=== PATIENT | male | born 1980 | race African-American/Black ===

== ENCOUNTER 2018-01-09 10:32 | Emergency (ER) | payer SELFPAY ==
[2018-01-09 11:23] LABS: Absolute Monocytes 0.9 K/uL (0.1-1.3); Absolute Neutrophil 4.1 K/uL (1.8-8.0); BUN Blood Urea Nitrogen 10 mg/dL (7-18); Basophils % 0.4 % (0-1.3); Bicarbonate 24 mmol/L (21-32); Glucose Level 84 mg/dL (74-106); Hematocrit 46.4 % (39.6-49.0); Lymphocytes % 36.6 % (15.3-44.8); MCH 30.5 pg (27.0-35.0); MCV 93.5 fL (80-100); MPV 8.9 fL (7.6-11.3); Magnesium 2.3 mg/dL (1.8-2.4); Monocytes % 11.4 % (3.3-12.3); NT PRO-BNP 12 pg/mL (<125); Potassium 3.6 mmol/L (3.5-5.1); RBC Red Blood Cell Count 4.96 M/uL (4.33-5.43); Sodium Level 143 mmol/L (136-145); Troponin (Emerg Dept Use Only) < 0.02 ng/mL (0.0-0.045)
--- NOTE | 2018-01-09 11:26 | RAD REPORT ---
EXAM DESCRIPTION: RAD - Chest Single View - 01/09/2018 11:13 am CLINICAL HISTORY: Cough;Dyspnea;Chest pain Chest pain. COMPARISON: No comparisons FINDINGS: Portable technique limits examination quality. The lungs are grossly clear. The heart is normal in size. No displaced fractures. IMPRESSION: No acute intrathoracic process suspected.
[2018-01-09] MEDS ORDERED: LEVALBUTEROL 1.25 MG/3 ML NEB ONE (11:27)
[2018-01-09] MEDS ORDERED: NA CHLORIDE 0.9% 1,000 ML ONE (11:27)
[2018-01-09] MEDS ORDERED: IPRATROPIUM BROM 0.5MG/2.5ML ONE (11:27)
[2018-01-09] MEDS ORDERED: METHYLPREDNISOLONE 125 MG INJ ONE (11:27)
[2018-01-09] MEDS ORDERED: MAGNESIUM SULFATE 1 gm IVPB 1 GM/100 ML BAG IV ONE (11:27)
--- NOTE | 2018-01-09 14:32 | ER ---
Nurse's Notes [facility] Name: Yunior Valladares Age: 37 yrs Sex: Male : 1980 Arrival Date: 01/09/2018 Time: 10:33 Bed 3 Private MD: Diagnosis: Hyperventilation;Chest pain, unspecified Presentation: 01/09 10:35 Presenting complaint: Patient states: SOB STARTED AROUND 930 OR 1000. Transition of care: patient was not received from another setting of care. Onset of symptoms was January 09, 2018 at 09:30. Risk Assessment: Do you want to hurt yourself or someone else? Patient reports no desire to harm self or others. Initial Sepsis Screen: Does the patient meet any 2 criteria? No. Patient's initial sepsis screen is negative. Does the patient have a suspected source of infection? No. Patient's initial sepsis screen is negative. Care prior to arrival: None. 10:46 Method Of Arrival: Wheelchair 10:46 Acuity: JOSE M 2 ch Triage Assessment: 10:40 General: Appears in no apparent distress. uncomfortable, Behavior is anxious, crying, ch fussy, restless. Pain: Complains of pain in back and chest. 10:40 Neuro: No deficits noted. Level of Consciousness is awake, alert, obeys commands, ch Oriented to person, place, time, situation. Cardiovascular: Heart tones S1 S2 present Capillary refill < 3 seconds in bilateral fingers toes. Respiratory: Airway is patent Respiratory effort is even, unlabored, Respiratory pattern is hyperventilation. Respiratory: Reports shortness of breath at rest air hunger Onset: The symptoms/episode began/occurred this morning, the patient has mild shortness of breath. GI: No signs and/or symptoms were reported involving the gastrointestinal system. Derm: Skin is intact, is healthy with good turgor, Skin is diaphoretic, Skin is brown, pale. Musculoskeletal: No signs and/or symptoms reported regarding the musculoskeletal system. Circulation, motion, and sensation intact. Capillary refill < 3 seconds, in bilateral fingers. toes. Range of motion: intact in all extremities. Historical: - Allergies: 10:55 Iodine; ch 10:55 SHELLFISH; ch - Home Meds: 10:47 None [Active]; ch - PMHx: 10:47 None; ch - PSHx: 10:47 Knee surgery; ch - Immunization history:: Adult Immunizations up to date, Flu vaccine is not up to date. - Social history:: Smoking status: Patient/guardian denies using tobacco, Patient/guardian denies using alcohol, street drugs. - Family history:: not pertinent. - Ebola Screening: : Patient negative for fever greater than or equal to 101.5 degrees Fahrenheit, and additional compatible Ebola Virus Disease symptoms Patient denies exposure to infectious person Patient denies travel to an Ebola-affected area in the 21 days before illness onset No symptoms or risks identified at this time. - Hospitalizations: : No recent hospitalization is reported. Screenin:02 Abuse screen: Denies threats or abuse. Denies injuries from another. Nutritional ch screening: No deficits noted. Tuberculosis screening: No symptoms or risk factors identified. Fall Risk None identified. Assessment: 11:02 Reassessment: Patient appears in no apparent distress at this time. Patient and/or ch family updated on plan of care and expected duration. Pain level reassessed. Patient is alert, oriented x 3, equal unlabored respirations, skin warm/dry/pink. General: Appears in no apparent distress. comfortable, Behavior is calm, cooperative, appropriate for age. Cardiovascular: Heart tones S1 S2 present Rhythm is sinus rhythm. Respiratory: Airway is patent Respiratory effort is even, unlabored, Breath sounds are clear bilaterally. 11:41 Reassessment: Patient appears in no apparent distress at this time. Patient and/or ch family updated on plan of care and expected duration. Pain level reassessed. Patient is alert, oriented x 3, equal unlabored respirations, skin warm/dry/pink. PT STILL C/O CHEST PAIN Patient states feeling better. Patient states symptoms have improved. 12:52 Reassessment: Patient appears in no apparent distress at this time. Patient and/or ch family updated on plan of care and expected duration. Pain level reassessed. Patient is alert, oriented x 3, equal unlabored respirations, skin warm/dry/pink. PT STATES IT FEELS HARDER TO BREATH, LIKE HE IS SOB. NO CHANGES IN VITALS. 14:42 Reassessment: Patient appears in no apparent distress at this time. Patient and/or ch family updated on plan of care and expected duration. Pain level reassessed. Patient is alert, oriented x 3, equal unlabored respirations, skin warm/dry/pink. Patient states feeling better. Patient states symptoms have improved. Vital Signs: 10:30 BP 148 / 92; Pulse 101; Resp 38; Temp 98.4; Pulse Ox 100% on R/A; Weight 108.86 kg; ch Height 5 ft. 10 in. (177.80 cm); Pain 7/10; 11:01 BP 133 / 98; Pulse 85; Resp 17; Pulse Ox 99% on R/A; Pain 7/10; ch 11:41 BP 144 / 96; Pulse 92; Resp 20; Pulse Ox 99% on R/A; Pain 6/10; ch 12:52 BP 137 / 100; Pulse 88; Resp 17; Pulse Ox 97% on R/A; Pain 6/10; ch 14:42 BP 142 / 87; Pulse 78; Resp 18; Temp 98.3; Pulse Ox 99% on R/A; Pain 5/10; ch 10:30 Body Mass Index 34.44 (108.86 kg, 177.80 cm) ch ED Course: 10:33 Patient arrived in ED. ss 10:35 Allan Schneider MD is Attending Physician. rn 10:36 EKG done, by industrial hygiene technician. reviewed by Allan Schneider MD. sm3 10:40 Arm band placed on right wrist. Patient placed in an exam room, on a stretcher, on oxygen, on drier and evaporator operator, on pulse oximetry. 10:40 EKG completed in triage. Results shown to MD. ch 10:44 Missed attempt(s): 22 gauge in left antecubital area. jb1 10:44 Missed attempt(s): 22 gauge antecubital area. jb1 10:45 Sanam Kelly, RN is Primary Nurse. ch 10:47 Triage completed. ch 11:02 No apparent distress. Resting quietly. ch 11:02 No provider procedures requiring assistance completed. Inserted saline lock: 20 gauge ch in right forearm, using aseptic technique. Blood collected. STARTED BY REESE Bragg 11:02 Patient has correct armband on for positive identification. Placed in gown. Bed in low ch position. Call light in reach. Side rails up X2. dental laboratory technology teacher on. Pulse ox on. NIBP on. 11:10 X-ray completed. Portable x-ray completed in exam room. Patient tolerated procedure ag1 well. 11:11 XRAY Chest (1 view) In Process Unspecified. EDMS 14:42 IV discontinued, intact, bleeding controlled, No redness/swelling at site. Pressure ch dressing applied. Administered Medications: 10:30 Drug: Xopenex (3) 1.25 mg Route: Inhalation; ch 11:40 Follow up: Response: No adverse reaction ch 10:30 Drug: AtroVENT Aerosol 0.5 mg Route: Inhalation; ch 11:40 Follow up: Response: No adverse reaction ch 11:03 Drug: Magnesium Sulfate 1 grams Route: IVPB; Infused Over: 1 hrs; Site: right forearm; ch 12:54 Follow up: IV Status: Completed infusion; IV Intake: 100ml ch 11:30 Drug: NS 0.9% 1000 ml Route: IV; Rate: 1000 ml; Site: right forearm; ch 12:55 Follow up: IV Status: Completed infusion; IV Intake: 1000ml ch Intake: 12:54 IV: 100ml; Total: 100ml. ch 12:55 IV: 1000ml; Total: 1100ml. ch Outcome: 14:24 Discharge ordered by . rn 14:42 Discharged to home ambulatory, with family. 14:42 Condition: stable 14:42 Discharge instructions given to patient, family, Instructed on discharge instructions, medication usage, Demonstrated understanding of instructions, follow-up care, medications, Prescriptions given X 2. 14:46 Patient left the ED. eb Signatures: Dispatcher [employer] EDMS J Carlos Steven1 Sanam Kelly, RN Allan Gordon ch, MD MD rn Smirch, Shelby, RN RN ss Gallaway, Ashley ag1 Botello, Elizabeth eb Montes, Shakira 3
--- NOTE | 2018-01-09 14:32 | EDPHYS ---
Physician Documentation [facility] Name: Yunior Valladares Age: 37 yrs Sex: Male : 1980 Arrival Date: 01/09/2018 Time: 10:33 Bed 3 Private MD: ED Physician Allan Schneider HPI: 01/09 10:45 This 37 yrs old Black Male presents to ER via Unassigned with complaints of Shortness rn Of Breath. 10:45 The patient has shortness of breath at rest. Onset: The symptoms/episode began/occurred rn just prior to arrival. Duration: The symptoms are continuous. The patient's shortness of breath is aggravated by nothing, is alleviated by nothing. Severity of symptoms: At their worst the symptoms were moderate in the emergency department the symptoms are unchanged. The patient has not experienced similar symptoms in the past. REports sob, began this AM, reports cough for 1 week, feels tightness in chest, non-radiating, no fever, no hx of DVT/PE, no leg swelling, no recent surgery, + smoker, no trauma. Denies drug use.. Historical: - Allergies: 10:55 Iodine; ch 10:55 SHELLFISH; ch - Home Meds: 10:47 None [Active]; ch - PMHx: 10:47 None; ch - PSHx: 10:47 Knee surgery; ch - Immunization history:: Adult Immunizations up to date, Flu vaccine is not up to date. - Social history:: Smoking status: Patient/guardian denies using tobacco, Patient/guardian denies using alcohol, street drugs. - Family history:: not pertinent. - Ebola Screening: : Patient negative for fever greater than or equal to 101.5 degrees Fahrenheit, and additional compatible Ebola Virus Disease symptoms Patient denies exposure to infectious person Patient denies travel to an Ebola-affected area in the 21 days before illness onset No symptoms or risks identified at this time. - Hospitalizations: : No recent hospitalization is reported. ROS: 10:45 Constitutional: Negative for fever, chills, and weight loss, Eyes: Negative for injury, rn pain, redness, and discharge, Neck: Negative for injury, pain, and swelling, Cardiovascular: + chest pain Respiratory: + cough and sob Abdomen/GI: Negative for abdominal pain, nausea, vomiting, diarrhea, and constipation, MS/Extremity: Negative for injury and deformity, Skin: Negative for injury, rash, and discoloration, Neuro: Negative for headache, weakness, numbness, tingling, and seizure. Exam: 10:45 Constitutional: This is a well developed, well nourished patient who is awake, alert, rn hyperventilating, panicking Head/Face: Normocephalic, atraumatic. Eyes: Pupils equal round and reactive to light, extra-ocular motions intact. Lids and lashes normal. Conjunctiva and sclera are non-icteric and not injected. Cornea within normal limits. Periorbital areas with no swelling, redness, or edema. ENT: no stridor Cardiovascular: tachycardic, regular, no murmur Respiratory: + tachypnea, with faint wheezing LLB, no retractions Abdomen/GI: Soft, non-tender, with normal bowel sounds. No distension or tympany. No guarding or rebound. No evidence of tenderness throughout. Skin: Warm, dry with normal turgor. Normal color with no rashes, no lesions, and no evidence of cellulitis. MS/ Extremity: Pulses equal, no cyanosis. Neurovascular intact. Full, normal range of motion. Equal circumference. Neuro: Awake and alert, GCS 15, oriented to person, place, time, and situation. Cranial nerves II-XII grossly intact. Motor strength 5/5 in all extremities. Sensory grossly intact. Cerebellar exam normal. Normal gait. Vital Signs: 10:30 BP 148 / 92; Pulse 101; Resp 38; Temp 98.4; Pulse Ox 100% on R/A; Weight 108.86 kg; ch Height 5 ft. 10 in. (177.80 cm); Pain 7/10; 11:01 BP 133 / 98; Pulse 85; Resp 17; Pulse Ox 99% on R/A; Pain 7/10; ch 11:41 BP 144 / 96; Pulse 92; Resp 20; Pulse Ox 99% on R/A; Pain 6/10; ch 12:52 BP 137 / 100; Pulse 88; Resp 17; Pulse Ox 97% on R/A; Pain 6/10; ch 14:42 BP 142 / 87; Pulse 78; Resp 18; Temp 98.3; Pulse Ox 99% on R/A; Pain 5/10; ch 10:30 Body Mass Index 34.44 (108.86 kg, 177.80 cm) ch MDM: 10:35 Patient medically screened. rn 14:23 Differential diagnosis: Anemia Anxiety Reaction Bronchitis Myocardial Infarction rn pneumonia, Pneumothorax pulmonary edema, Pulmonary Embolism reactive airway disease. Data reviewed: vital signs, nurses notes, lab test result(s), EKG, radiologic studies, plain films, and as a result, I will discharge patient. Counseling: I had a detailed discussion with the patient and/or guardian regarding: the historical points, exam findings, and any diagnostic results supporting the discharge/admit diagnosis, lab results, radiology results, the need for outpatient follow up, to return to the emergency department if symptoms worsen or persist or if there are any questions or concerns that arise at home. Special discussion: Based on the patient's history, exam, and Dx evaluation, there is no indication for emergent intervention or inpatient Tx. It is understood by the patient/guardian that if the Sx's persist or worsen they need to return immediately for re-evaluation. I discussed with the patient/guardian in detail that at this point there is no indication for admission to the hospital. It is understood, however, that if the symptoms persist or worsen the patient needs to return immediately for re-evaluation. ED course: Much improved, now walking to bathroom without difficulty, oxygen 97%, d-dimer neg, normal ecg, normal trop, will dc home with inhaler and abx, most likely bronchitis/pleurisy given week long cough and smoker. . 14:38 ED course: Pt smiling, on phone, non-toxic, feels better. . rn 01/09 10:37 Order name: Basic Metabolic Panel; Complete Time: 11: rn 01/09 10:37 Order name: CBC with Diff; Complete Time: rn 01/09 10:37 Order name: Magnesium; Complete Time: 11: rn 01/09 10:37 Order name: NT PRO-BNP; Complete Time: : rn 01/09 10:37 Order name: Troponin (emerg Dept Use Only); Complete Time: : rn 01/09 13:10 Order name: D-Dimer; Complete Time: 14:10 rn 01/09 10:37 Order name: XRAY Chest (1 view); Complete Time: 11: rn 01/09 10:37 Order name: EKG; Complete Time: rn 01/09 10:37 Order name: Cardiac monitoring; Complete Time: 11: rn 01/09 10:37 Order name: EKG - Nurse/Tech; Complete Time: : rn 01/09 10:37 Order name: IV Saline Lock; Complete Time: : rn 01/09 10:37 Order name: Labs collected and sent; Complete Time: : rn 01/09 10:37 Order name: O2 Per Protocol; Complete Time: : rn 01/09 10:37 Order name: O2 Sat Monitoring; Complete Time: 11:34 rn Administered Medications: 10:30 Drug: Xopenex (3) 1.25 mg Route: Inhalation; ch 11:40 Follow up: Response: No adverse reaction ch 10:30 Drug: AtroVENT Aerosol 0.5 mg Route: Inhalation; ch 11:40 Follow up: Response: No adverse reaction ch 11:03 Drug: Magnesium Sulfate 1 grams Route: IVPB; Infused Over: 1 hrs; Site: right forearm; ch 12:54 Follow up: IV Status: Completed infusion; IV Intake: 100ml ch 11:30 Drug: NS 0.9% 1000 ml Route: IV; Rate: 1000 ml; Site: right forearm; ch 12:55 Follow up: IV Status: Completed infusion; IV Intake: 1000ml ch Disposition: 01/09/18 14:24 Discharged to Home. Impression: Hyperventilation, Chest pain, unspecified. - Condition is Stable. - Discharge Instructions: Nonspecific Chest Pain, Hypertension, Hyperventilation. - Prescriptions for Zithromax Z- Mikie 250 mg Oral Tablet - take 1 tablet by ORAL route as directed for 5 days Day 1 - take two (2) tablets one time. Day 2, 3, 4 , 5 take one (1) tablet once daily.; 6 tablet. Albuterol Sulfate 90 mcg/actuation - inhale 1-2 puff by INHALATION route every 4-6 hours; 1 Inhaler. - Work release form, Medication Reconciliation Form, Thank You Letter, Antibiotic Education, Prescription Opioid Use form. - Follow up: Private Physician; When: As needed; Reason: Recheck today's complaints, Re-evaluation by your physician. - Problem is new. - Symptoms have improved. Signatures: Dispatcher [employer] EDSanam Jensen RN RN Allan Del Rosario MD MD rn Botello, Elizabeth eb Corrections: (The following items were deleted from the chart) 11:02 10:38 Chest Single View+RAD.RAD.BRZ ordered. [facility] EDMS 14:46 14:24 01/09/2018 14:24 Discharged to Home. Impression: Hyperventilation; Chest pain, eb unspecified. Condition is Stable. Forms are Medication Reconciliation Form, Thank You Letter, Antibiotic Education, Prescription Opioid Use. Follow up: Private Physician; When: As needed; Reason: Recheck today's complaints, Re-evaluation by your physician. Problem is new. Symptoms have improved. rn
--- NOTE | 2018-01-09 15:02 | EKG ---
Test Date: 2018-01-09 Test Time: 10:35:06 Ammonia Nitrate Operator: KEVIN/S MEASUREMENT RESULTS: Intervals: Rate: 119 NJ: 164 QRSD: 80 QT: 310 QTc: 436 Wayne: P: 82 NJ: 164 QRS: 57 T: 68 INTERPRETIVE STATEMENTS: Sinus tachycardia Nonspecific T wave abnormality Abnormal ECG No previous ECG available for comparison Electronically Signed On 01-09-18 15:01:12 CDT by Darvin Navas
== END 2018-01-09 14:46 | disposition home or self-care (01) ==
LOC: ER 10:32
DX: R06.4 Hyperventilation (principal); R07.9 Chest pain, unspecified; Z88.4 Allergy status to anesthetic agent; Z88.8 Allergy status to other drugs, medicaments and biological substances; Z91.013 Allergy to seafood
CPT/HCPCS: 36415; 71045; 80048; 83735; 83880; 84484; 85025; 85379; 93005; 96365; 96366; 99285; J2930; J3475; J7030

== ENCOUNTER 2018-03-25 14:28 | Inpatient (IN) | payer SELFPAY ==
[2018-03-25] MEDS ORDERED: LORazepam 2 MG/ML VIAL ONE (14:39)
[2018-03-25] MEDS ORDERED: ZIPRASIDONE MESYLA 20 MG/VIAL IM ONE (14:39)
[2018-03-25] MEDS ORDERED: WATER FOR INJ,STERILE 10 ML ONE (14:40)
[2018-03-25] MEDS ORDERED: MIDAZOLAM HCL 2 MG/2 ML INJ ONE (14:57)
[2018-03-25] MEDS ORDERED: NA CHLORIDE 0.9% 1,000 ML ONE ×2 (15:10→17:20)
[2018-03-25] MEDS ORDERED: D50W 25 GM/50 ML SYRINGE IV ONE ×2 (15:16→21:07)
--- NOTE | 2018-03-25 15:18 | RAD REPORT ---
EXAM DESCRIPTION: CT - Head Brain Wo Cont - 03/25/2018 3:12 pm CLINICAL HISTORY: hallucinations;Confused Drowsiness COMPARISON: No comparisons TECHNIQUE: All CT scans are performed using dose optimization technique as appropriate and may inclu de automated exposure control or mA/KV adjustment according to patient size. FINDINGS: No intracranial hemorrhage, hydrocephalus or extra-axial fluid collection.No areas of brai n edema or evidence of midline shift. The paranasal sinuses and mastoids are clear. The calvarium is intact. IMPRESSION: No acute intracranial abnormality.
[2018-03-25 15:25] LABS: Absolute Lymphocytes (CBC) 1.5 K/uL (0.7-4.9); Absolute Monocytes 0.8 K/uL (0.1-1.3); Absolute Neutrophil 5.5 K/uL (1.8-8.0); Basophils % 0.6 % (0-1.3); Eosinophils % 0.2 % (0-4.4); Hematocrit 50.5 % (39.6-49.0); Lymphocytes % 19.6 % (15.3-44.8); MCH 31.1 pg (27.0-35.0); MCV 92.7 fL (80-100); MPV 9.4 fL (7.6-11.3); RBC Red Blood Cell Count 5.44 M/uL (4.33-5.43)
[2018-03-25 15:27] LABS: Protime INR 0.94
[2018-03-25 15:36] LABS: ALT/SGPT 76 U/L (12-78); AST/SGOT 206 U/L (15-37); Albumin 4.3 g/dL (3.4-5.0); Alkaline Phosphatase 117 U/L (45-117); BUN Blood Urea Nitrogen 15 mg/dL (7-18); Bicarbonate 23 mmol/L (21-32); Bilirubin Direct 0.4 mg/dL (0-0.2); Bilirubin Total 1.1 mg/dL (0.2-1.0); Glucose Level 83 mg/dL (74-106); Potassium 3.3 mmol/L (3.5-5.1); Protein, Total 8.2 g/dL (6.4-8.2); Sodium Level 139 mmol/L (136-145)
[2018-03-25 15:44] LABS: Urine Appearance CLOUDY; Urine Blood 2+ (NEG); Urine Color DK YELLOW; Urine Glucose 1+ (NEG); Urine Protein 1+ (NEG); Urine Specific Gravity >=1.030 (1.005-1.030); Urine pH 5.5 (5.0-7.0)
[2018-03-25 15:46] LABS: Urine Bilirubin 2+ (NEG); Urine Microscopic Reflex ORDER UMIC
[2018-03-25 16:07] LABS: Barbiturates NEGATIVE (NEGATIVE); Benzodiazepines POSITIVE (NEGATIVE); Cocaine NEGATIVE (NEGATIVE); METHAMPHETAM POSITIVE (NEGATIVE); Methadone NEGATIVE (NEGATIVE); Opiates NEGATIVE (NEGATIVE); Phencyclidine NEGATIVE (NEGATIVE); THC Cannibis NEGATIVE (NEGATIVE)
[2018-03-25 16:15] LABS: Urine Amorphous Sediment 2+ /HPF (NONE SEEN); Urine Bacteria 20-50 /HPF (NONE SEEN); Urine Culture Reflex Order REFLEXED; Urine Mucus 2+ /HPF (NONE SEEN)
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
--- NOTE | 2018-03-25 18:10 | EDPHYS ---
Physician Documentation [facility] Name: Yunior Valladares Age: 37 yrs Sex: Male : 1980 Arrival Date: 03/25/2018 Time: 14:34 Bed 3 Private MD: ED Physician Allan Schneider HPI: 03/25 16:08 This 37 yrs old Black Male presents to ER via EMS with complaints of AMS. rn 16:08 The patient presents with agitation, disorientation, hallucinating. Onset: The rn symptoms/episode began/occurred at an unknown time. Possible causes: unknown. Current symptoms: In the emergency department the patient's symptoms have improved. It is unknown whether or not the patient has had similar symptoms in the past. Per EMS, called out because hallucinating and acting different, no fever, no head trauma, ex called and reports frequently uses cocaine/marijuana/ecstasy/ETOH, patient reports seeing things move, not suicidal/homicidal, reports no previous hx of psychiatric problems or medication.. Historical: - Allergies: 14:48 Iodine; jl7 14:48 SHELLFISH; jl7 - PSHx: 14:48 Knee surgery; jl7 - Immunization history:: Adult Immunizations unknown. - Social history:: Smoking status: unknown. - Ebola Screening: : No symptoms or risks identified at this time. - Unable to obtain history due to: patient being uncooperative. ROS: 16:08 Constitutional: Negative for fever, chills, and weight loss, Eyes: Negative for injury, rn pain, redness, and discharge, ENT: Negative for injury, pain, and discharge, Cardiovascular: Negative for chest pain, palpitations, and edema, Respiratory: Negative for shortness of breath, cough, wheezing, and pleuritic chest pain, Abdomen/GI: Negative for abdominal pain, nausea, vomiting, diarrhea, and constipation, MS/Extremity: Negative for injury and deformity, Skin: + sweaty Neuro: Negative for headache, weakness, numbness, tingling, and seizure, Psych: Negative for depression, anxiety, suicide ideation, homicidal ideation Exam: 16:08 Constitutional: This is a well developed, well nourished patient who is awake, alert, rn agitated, requiring redirection constantly, and diaphoretic Head/Face: Normocephalic, atraumatic. Eyes: Pupils equal round and reactive to light, extra-ocular motions intact. Lids and lashes normal. Conjunctiva and sclera are non-icteric and not injected. Cornea within normal limits. Periorbital areas with no swelling, redness, or edema. ENT: dry MM Cardiovascular: tachycardic, regular, no murmur Respiratory: + mild tachypnea but clear bilaterally Abdomen/GI: soft, non-tender Skin: clammy and diaphoretic MS/ Extremity: Pulses equal, no cyanosis. Neurovascular intact. Full, normal range of motion. Equal circumference. Neuro: Awake and alert, GCS 15, oriented to person, place, and situation. Cranial nerves II-XII grossly intact. Motor strength 5/5 in all extremities. Sensory grossly intact. Cerebellar exam normal. Normal gait. Vital Signs: 15:00 BP 164 / 133; Pulse 107; Resp 18 S; Pulse Ox 92% on R/A; jl7 15:15 BP 128 / 71; Pulse 114; Resp 19; Pulse Ox 98% on 4 lpm NC; jl7 15:30 BP 132 / 77; Pulse 114; Resp 14 S; Pulse Ox 98% on 4 lpm NC; jl7 15:58 BP 124 / 87; Pulse 103; Resp 16 S; Pulse Ox 97% on 4 lpm NC; jl7 16:05 Temp 98.1(A); jl7 17:16 BP 121 / 71; Pulse 94; Resp 16 S; Pulse Ox 95% on 4 lpm NC; jl7 19:13 Pulse 90; Resp 19 S; Pulse Ox 95% on R/A; jd3 19:28 BP 125 / 88; Pulse 97; Resp 19 S; Pulse Ox 95% on R/A; jd3 MDM: 14:37 Patient medically screened. rn 18:01 Differential Diagnosis: electrolyte abnormality, intracranial bleed, overdose, volume rn depletion, excited delirium, intoxication, stimulant overdose. Data reviewed: vital signs, nurses notes, lab test result(s), EKG, radiologic studies, CT scan, and as a result, I will admit patient. Counseling: I had a detailed discussion with the patient and/or guardian regarding: the historical points, exam findings, and any diagnostic results supporting the discharge/admit diagnosis, lab results, radiology results, the need for further work-up and treatment in the hospital. Response to treatment: the patient's symptoms have mildly improved after treatment, and as a result, I will admit patient. Admission orders: after a detailed discussion of the patient's condition and case, the admit orders are written by me. ED course: Pt with excited delirium, likely meth induced, known drug use, and now more improved, is sedated but signs of early rhabdo and hallucinations, will admit to Dr. Escalante, called \T\ 1800, no answer, message left, will try again shortly. . 03/25 14:38 Order name: Acetaminophen; Complete Time: 15:41 rn 03/25 14:38 Order name: Basic Metabolic Panel; Complete Time: 15:41 rn 03/25 14:38 Order name: CBC with Diff; Complete Time: 15:41 rn 03/25 14:38 Order name: ETOH Level; Complete Time: 17:57 rn 03/25 14:38 Order name: Hepatic Function; Complete Time: 15:41 rn 03/25 14:38 Order name: PT-INR; Complete Time: 15:41 rn 03/25 14:38 Order name: Ptt, Activated; Complete Time: 15:41 rn 03/25 14:38 Order name: Salicylate; Complete Time: 16:20 rn 03/25 14:38 Order name: Urine Drug Screen; Complete Time: 16:20 rn 03/25 15:23 Order name: Glucose, Ancillary Testing; Complete Time: 15:41 EDUT 03/25 15:34 Order name: CK; Complete Time: 17:57 iw 03/25 15:38 Order name: UA; Complete Time: 16:20 jl7 03/25 16:05 Order name: Urine Microscopic Only; Complete Time: 16:20 EDUT 03/25 16:18 Order name: Urine Culture EDMS 03/25 18:23 Order name: CBC with Automated Diff EDMS 03/25 18:23 Order name: CBC with Automated Diff EDMS 03/25 18:24 Order name: CBC with Automated Diff EDMS 03/25 18:24 Order name: CBC with Automated Diff EDMS 03/25 18:24 Order name: Comprehensive Metabolic Panel EDMS 03/25 18:24 Order name: Comprehensive Metabolic Panel EDMS 03/25 18:24 Order name: Comprehensive Metabolic Panel EDMS 03/25 18:24 Order name: Comprehensive Metabolic Panel EDMS 03/25 18:24 Order name: Creatine Phosphokinase EDMS 03/25 18:24 Order name: Creatine Phosphokinase EDUT 03/25 18:24 Order name: Creatine Phosphokinase EDUT 03/25 18:24 Order name: Creatine Phosphokinase [facility] 03/25 18:24 Order name: Magnesium EDUT 03/25 18:24 Order name: Magnesium EDUT 03/25 18:24 Order name: Phosphorus EDUT 03/25 18:24 Order name: Phosphorus [facility] 03/25 14:38 Order name: EKG; Complete Time: 14:38 rn 03/25 14:38 Order name: EKG - Nurse/Tech; Complete Time: 15:47 rn 03/25 14:38 Order name: IV Saline Lock; Complete Time: 15:47 rn 03/25 14:38 Order name: Labs collected and sent; Complete Time: 15:47 rn 03/25 14:38 Order name: Urine Dipstick-Ancillary (obtain specimen); Complete Time: 15:47 rn 03/25 14:38 Order name: CT Head Brain wo Cont; Complete Time: 15:22 rn 03/25 18:23 Order name: NPO [facility] 03/25 18:24 Order name: CONS Pharmacy Consult EDUT Administered Medications: 14:35 Drug: Geodon 20 mg Route: IM; Site: right deltoid; aa5 15:00 Follow up: Response: No adverse reaction; Marked relief of symptoms jl7 14:51 Not Given (Physician Discretion): Versed 3 mg IVP once aa5 14:51 Drug: Versed 3 mg Route: IM; Site: right deltoid; aa5 15:00 Follow up: Response: No adverse reaction; Marked relief of symptoms jl7 15:20 Drug: D50W 50 ml Route: IVP; Site: left antecubital; jl7 19:32 Follow up: Response: No adverse reaction; Blood sugar is elevated jl7 15:37 Drug: NS 0.9% 1000 ml Route: IV; Rate: 1000 ml; Site: left antecubital; jl7 16:30 Follow up: IV Status: Completed infusion jl7 17:30 Drug: NS 0.9% 1000 ml Route: IV; Rate: 1000 ml; Site: right antecubital; jl7 18:30 Follow up: IV Status: Completed infusion jl7 Point of Care Testing: Blood Glucose: 15:08 Blood Glucose: 68 mg/dL; aa5 15:08 notified aa5 Ranges: Critical Glucose Levels:Adult <50 mg/dl or >400 mg/dl <40 mg/dl or >180 mg/dl Disposition: 03/25/18 18:09 Hospitalization ordered by Radha Escalante for Inpatient Admission. Preliminary diagnosis are Rhabdomyolysis, Adverse effect of amphetamines, Altered mental status, unspecified, Delirium due to known physiological condition. - Bed requested for Intensive Care Unit. - Status is Inpatient Admission. jd3 - Condition is Fair. - Problem is new. - Symptoms have improved. UTI on Admission? No Signatures: Dispatcher [employer] EDMS Allan Schneider MD MD rn Calderon, Audri RN RN aa5 Rodrigo Dallas RN RN jl7 Janie Ventuar RN RN df Rigo Castillo RN RN jd3 Corrections: (The following items were deleted from the chart) 19:01 18:09 Hospitalization Ordered by Radha Escalante MD for Inpatient Admission. Preliminary df diagnosis is Rhabdomyolysis; Adverse effect of amphetamines; Altered mental status, unspecified; Delirium due to known physiological condition. Bed requested for Intensive Care Unit. Status is Inpatient Admission. Condition is Fair. Problem is new. Symptoms have improved. UTI on Admission? No. rn 19:51 19:01 03/25/2018 18:09 Hospitalization Ordered by Radha Escalante MD for Inpatient jd3 Admission. Preliminary diagnosis is Rhabdomyolysis; Adverse effect of amphetamines; Altered mental status, unspecified; Delirium due to known physiological condition. Bed requested for Intensive Care Unit. Status is Inpatient Admission. Condition is Fair. Problem is new. Symptoms have improved. UTI on Admission? No. df
[2018-03-25] MEDS ORDERED: LORazepam 2 MG/ML VIAL IV PRN (18:16)
[2018-03-25] MEDS ORDERED: DIPHENHYDRAMINE 50 MG/ML VIAL IV PRN (18:16)
[2018-03-25] MEDS ORDERED: ACETAMINOPHEN 650MG/RECT SUPP PR PRN (18:16)
[2018-03-25] MEDS ORDERED: HALOPERIDOL LACT 5 MG/ML INJ IV PRN (18:16)
[2018-03-25] MEDS ORDERED: ONDANSETRON 4 MG/2 ML VIAL IV PRN (18:16)
[2018-03-25] MEDS ORDERED: NA CHLORIDE 0.9% 1,000 ML IV SCH (19:00)
[2018-03-25] MEDS: ENOXAPARIN 40 MG/0.4 ML SQ SCH (20:06)
[2018-03-25] MEDS: ZIPRASIDONE 20 MG CAP PO SCH (20:25)
[2018-03-25 20:52] VITALS: BMI 34.4
[2018-03-25] MEDS: D5 0.9 NS 1,000 ML IV SCH (21:17)
--- NOTE | 2018-03-25 22:12 | P.HP ---
Certification for Inpatient Patient admitted to: Inpatient With expected LOS: >2 Midnights Practitioner: I am a practitioner with admitting privileges, knowledge of patient current condition, hospital course, and medical plan of care. Services: Services provided to patient in accordance with Admission requirements found in Title 42 Section 412.3 of the Code of Federal Regulations Patient History Date of Service: 03/25/18 Reason for admission: acute encephaloptahy History of Present Illness: Mr Valladares is a 37 yeas old male who lives in a hotel, start acting add this afternoon according to his girlfriend. The patient was not himself, he was belligerent, agitated and confused. The manager research and development of the hotel called 911 since the patient was crowling, yelling and throwing staff on the frontyard of the hotel. In ER the patient was afebrile, Lab work shows normal WBC count, abnormal renal function, elevated CK, toxicology screen was positive for amphetamines and benzodiazepines. CT head showed no acute abnormalities. According to his girlfriend, he has never had an episode like that, and she is not aware if the patient consume ilegal drugs. Allergies iodine Allergy (Verified 03/25/18 18:48) unknown Home medications list reviewed: Yes Home Medications: NK [No Home Meds] 03/25/18 - Past Medical/Surgical History Past Medical History: Unable to obtain Past Surgical History: Unable to obtain - Family History Family History: Reviewed- Non-Contributory - Social History Smoking Status: Current every day smoker Alcohol use: Yes CD- Drugs: No Place of Residence: Home Review of Systems is unable to be obtained Physical Examination - Vital Signs Temperature: 98.1 F Blood Pressure: 125/88 Pulse: 97 Respirations: 19 - Physical Exam General: Alert, Mild distress, Delirious HEENT: Atraumatic, PERRLA, Mucous membr. moist/pink, EOMI, Sclerae nonicteric Neck: Supple, 2+ carotid pulse no bruit, No LAD, Without JVD or thyroid abnormality Respiratory: Clear to auscultation bilaterally, Normal air movement Cardiovascular: Regular rate/rhythm, Normal S1 S2 Gastrointestinal: Normal bowel sounds, No tenderness Musculoskeletal: No tenderness Integumentary: No rashes Neurological: Normal strength at 5/5 x4 extr, Normal tone, Normal affect Lymphatics: No axilla or inguinal lymphadenopathy - Studies Laboratory Data (last 24 hrs) 03/25/18 15:00: PT 11.1, INR 0.94, APTT 30.8 03/25/18 15:00: WBC 7.9, Hgb 16.9, Hct 50.5 H, Plt Count 243 03/25/18 15:00: Sodium 139, Potassium 3.3 L, BUN 15, Creatinine 1.60 H, Glucose 83, Total Bilirubin 1.1 H, AST 206 H, ALT 76, Alkaline Phosphatase 117 Assessment and Plan - Problems (Diagnosis) (1) Acute encephalopathy Current Visit: Yes Status: Acute (2) Psychosis Current Visit: Yes Status: Acute Qualifiers: Psychosis type: unspecified psychosis type Qualified Code(s): F29 - Unspecified psychosis not due to a substance or known physiological condition (3) Amphetamine abuse Current Visit: Yes Status: Acute - Plan The patient will be admitted to ICU for close monitoring, due to a phychotic event. Differential diagnosis include, withdrawal vs intoxication with ilegal drugs (amphetamines), schizophrenia. Continue antiphychotics as needed. F/U progression of symptoms in AM. - Advance Directives Does patient have a Living Will: No Does patient have a Durable POA for Healthcare: No - Code Status/Comfort Care Code Status Assessed: Yes Code Status: Full Code Critical Care: Yes (30 minutes)
[2018-03-26] MEDS: D5 0.9 NS 1,000 ML IV SCH ×2 (04:37→14:14)
[2018-03-26 05:02] LABS: Absolute Lymphocytes (CBC) 1.9 K/uL (0.7-4.9); Absolute Monocytes 0.9 K/uL (0.1-1.3); Absolute Neutrophil 4.2 K/uL (1.8-8.0); Basophils % 0.2 % (0-1.3); Eosinophils % 1.3 % (0-4.4); Hematocrit 44.7 % (39.6-49.0); Lymphocytes % 26.2 % (15.3-44.8); MCH 30.8 pg (27.0-35.0); MPV 8.9 fL (7.6-11.3); Monocytes % 12.8 % (3.3-12.3)
--- NOTE | 2018-03-26 05:15 | EKG ---
Test Date: 2018-03-25 Test Time: 15:31:58 Casket Trimmer: KEVIN MEASUREMENT RESULTS: Intervals: Rate: 110 UT: 154 QRSD: 84 QT: 344 QTc: 465 [place]: P: 64 UT: 154 QRS: 19 T: 35 INTERPRETIVE STATEMENTS: Sinus tachycardia Otherwise normal ECG Compared to ECG 01/09/2018 10:35:06 T-wave abnormality no longer present Electronically Signed On 03-26-18 05:15:05 SECURE SOFTWARE ASSESSOR by Darvin Navas
[2018-03-26 05:27] LABS: Albumin 3.2 g/dL (3.4-5.0); Bilirubin Total 1.5 mg/dL (0.2-1.0); Magnesium 2.4 mg/dL (1.8-2.4); Phosphorus 3.7 mg/dL (2.5-4.9); Potassium 3.7 mmol/L (3.5-5.1); Protein, Total 6.2 g/dL (6.4-8.2)
[2018-03-26] MEDS ORDERED: INFLUENZA VACCINE (for 3y+) 0.5 ML DOSE IMVAC ONE (08:00)
[2018-03-26] MEDS: ZIPRASIDONE 20 MG CAP PO SCH ×2 (09:00→20:43)
[2018-03-26] MEDS: ENOXAPARIN 40 MG/0.4 ML SQ SCH (09:00)
[2018-03-26] MEDS: NA CHLORIDE 0.9% 1,000 ML IV SCH (16:00)
--- NOTE | 2018-03-26 20:07 | PN ---
Date of Progress Note: 03/26/2018 Subjective: Patient seen and examined. Chart reviewed and case discussed with RN. Family at the [facility]. Treatment plan explained. All questions answered. Medications: List reviewed. Physical Examination: Vital Signs: Temperature 98.8, heart rate 92, blood pressure 137/72, respirations 24, O2 100% on selvin m air. General: Awake, alert, oriented x3, not in any acute distress. Obese male with some pressured speec h. CV: S1 and S2. No murmurs. Regular rate and rhythm. Peripheral pulses present. Respiratory: Moving air well bilaterally. No wheezing or stridor. No use of accessory muscles. Gastrointestinal: Abdomen is soft, nontender, nondistended. Positive bowel sounds. No guarding or rigidity. Extremities: No clubbing, cyanosis, or edema. No calf tenderness. Neuro: Cranial nerves 2 through 12 intact grossly. No focal neurological deficit. Speech is normal . Psych: Mood is anxious. Affect is congruent with mood. Insight and judgment are fair. Speech is s omewhat pressured. Laboratory Data: Sodium 142, potassium 3.7, chloride 113, CO2 26, BUN 12, creatinine 1.3, glucose 84 , calcium 8, phosphorus 3.7, magnesium 2.4. AST 104, ALT 52. CK 2394, recheck is 1657. Albumin 3.2 . WBC 7.1, hemoglobin and hematocrit 14.5 and 44.7, platelets 176. Urine culture pending. Assessment: A 37-year-old male with: 1.Acute encephalopathy. 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 3.Polysubstance abuse with methamphetamine, benzos. 4.Obesity. 5.Acute rhabdomyolysis, improving. We will continue IV fluids. 6.Acute kidney injury, resolved. Creatinine has normalized. 7.Asymptomatic bacteriuria. Urine culture pending. Plan: We will continue IV fluids step down from ICU. Likely discharge in a.m. once rhabdomyolysis h as resolved. The patient will need outpatient psychiatric followup. Likely has bipolar disorder or other psychosis due to substance abuse. SA/MODL Voice ID: [id number] Report ID: [id number]
[2018-03-27] MEDS: NA CHLORIDE 0.9% 1,000 ML IV SCH ×3 (00:27→08:00)
[2018-03-27 07:01] LABS: Absolute Lymphocytes (CBC) 1.7 K/uL (0.7-4.9); Absolute Monocytes 0.6 K/uL (0.1-1.3); Basophils % 0.3 % (0-1.3); Hematocrit 42.8 % (39.6-49.0); Lymphocytes % 39.2 % (15.3-44.8); MCH 31.1 pg (27.0-35.0); MCV 94.1 fL (80-100); MPV 8.9 fL (7.6-11.3); RBC Red Blood Cell Count 4.55 M/uL (4.33-5.43)
[2018-03-27 07:21] LABS: Albumin 2.9 g/dL (3.4-5.0); Bilirubin Total 0.9 mg/dL (0.2-1.0); Potassium 3.6 mmol/L (3.5-5.1); Protein, Total 5.9 g/dL (6.4-8.2)
[2018-03-27] MEDS: ENOXAPARIN 40 MG/0.4 ML SQ SCH (09:00)
[2018-03-27] MEDS: ZIPRASIDONE 20 MG CAP PO SCH (09:37)
[2018-03-27 12:27] VITALS: BP 157/102; TEMP 97.5
[2018-03-27 12:33] VITALS: O2SAT 97
--- NOTE | 2018-03-28 11:58 | DS ---
Date of Discharge: 03/27/2018 Discharge Diagnoses: 1. Acute metabolic encephalopathy. 2. Acute delirium. 3. 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 4. Polysubstance abuse with methamphetamines, benzodiazepines. 5. Obesity, BMI greater than 30. 6. Acute rhabdomyolysis, resolved. 7. Acute kidney injury, resolved. 8. Asymptomatic bacteriuria; culture showed no growth. Hospital Course: The patient is a 37-year-old male with past medical history of obesity and polysubstance abuse in the past with cocaine and current use with amphetamines and benzodiazepines, who came in delirious, agitated, brought into the ER from in front of a hotel where he was found to be very agitated. The patient was encephalopathic, likely due to acute delirium and psychosis caused by his drug abuse. The patient was admitted to the ICU. He needed several medications to sedate him and to improve his agitation. The patient was found to have acute kidney injury likely secondary to his drug abuse leading to dehydration. He also had acute rhabdomyolysis with CK level in the 5000 range. The patient was started on IV fluids. The patient was admitted to the ICU for close monitoring. The patient did improve. He woke up the following day, and he had some pressured speech. His story not making much sense, talking about people who visited him at the hotel and then suddenly disappeared. The patient's family was also at the bedside. He was counseled regarding his drug abuse. He denied his drug abuse despite his positive UDS. He did agree to smoking weed in the past. The patient's kidney function improved with hydration. He was able to tolerate his diet. He was hydrating well. His acute rhabdomyolysis also resolved. The patient was then referred to [facility] for further evaluation and treatment. May be suffering from possible bipolar disorder or psychosis secondary to his polysubstance abuse. The patient had threatened to leave AMA several times, however, after discussion with myself and his family members, he agreed to stay. The patient was then discharged to home in a stable condition. Activity: As tolerated. Medications: As per medication reconciliation list. Followup: Follow up with primary care physician in 2-3 days. Follow up with MR in 1 week. Return to ER for worsening condition. Diet: Calorie restricted. Activities: No strenuous activity for the next week. Keep well hydrated. Physical Examination: General: Awake, alert, oriented, in no acute distress. Obese male. CV: S1, S2. No murmurs. Respiratory: Moving air well bilaterally. Abdomen: Soft, nontender, nondistended. Positive bowel sounds. Extremities: No clubbing, cyanosis, edema. Neurologic: Nonfocal. Total time spent discharging patient was 32 minutes YUMIKO Voice ID: [id number] Report ID: [id number] [facility]ANEM[facility]helle
== END 2018-03-27 13:38 | disposition home or self-care (01) | DRG 92 ==
LOC: ER 14:28 → ERHOLD 18:18 → 3RD-ICU 19:35 → 4TH 03-26 14:27
PROVIDERS: ADMIT Family Medicine; ATTEND Family Medicine
DX: G92 Toxic encephalopathy (principal); F15.121 Other stimulant abuse with intoxication delirium; M62.82 Rhabdomyolysis; N17.9 Acute kidney failure, unspecified; F15.159 Other stimulant abuse with stimulant-induced psychotic disorder, unspecified; E66.9 Obesity, unspecified; Z68.30 Body mass index [BMI] 30.0-30.9, adult; R82.71 Bacteriuria; E86.0 Dehydration; Z91.013 Allergy to seafood; F17.210 Nicotine dependence, cigarettes, uncomplicated
CPT/HCPCS: 36415; 51702; 70450; 80048; 80053; 80076; 80307; 80320; 80329; 81003; 81015; 82550; 82962; 83735; 84100; 85025; 85610; 85730; 87086; 87088; 93005; 96361; 96372; 96374; 99285; J1650; J2250; J3486; J7030